=== PATIENT | female | born 1990 | race Two or more races ===

== ENCOUNTER 2022-01-08 15:04 | Outpatient (CLI) | payer OTHER | END 2022-01-08 15:09 | disposition home or self-care (01) | LOC: PPH VACUNA 15:04 | PROVIDERS: ATTEND Emergency Medicine Pediatric Emergency Medicine | DX: Z23 Encounter for immunization (principal) ==

== ENCOUNTER → 2022-12-18 | Outpatient (CLI) | payer OTHER | END | disposition home or self-care (01) | LOC: PPH VACUNA | PROVIDERS: ATTEND Emergency Medicine Pediatric Emergency Medicine | DX: Z23 Encounter for immunization (principal) ==